=== PATIENT | female | born 1985 | race Caucasian/White ===

== ENCOUNTER 2019-08-27 00:38 | Emergency (ER) | payer SELFPAY ==
--- NOTE | 2019-08-27 01:33 | EDM.PDOC ---
ED HPI GENERAL MEDICAL PROBLEM - General Chief Complaint: Skin Complaint Stated Complaint: RASH Time Seen by Provider: 08/27/19 01:24 Source of Information: Reports: Patient History Limitations: Reports: No Limitations - History of Present Illness INITIAL COMMENTS - FREE TEXT/NARRATIVE: 34-year-old female presents to the ED due to severe pruritus a night. She reports she's been going on for about a month but is progressively getting worse. It is now spreading to the peritoneum and to the introitus of the vagina. Scribed it is a terrible burning itching discomfort. Is applied several [id number] preparations but most of them burned terribly and she has stopped using them. The history suggests that she is using Gain soap which is highly perfumed and does use it quite often to her perianal tissues and perineum and the believe that she might be soiled and thus causing the problems. Onset: Gradual Onset Date: 07/29/19 (Gradually worsening problem over the last month.) Duration: Week(s): (About 4 weeks.) Location: Reports: Other (Pruritus and 9 now spreading to the perineum and vulva ) Quality: Reports: Burning, Other Severity: Severe (Severe pruritus) Improves with: Reports: Other (Sitting in warm water baths does help some.) Worsens with: Reports: Other Context: Reports: Other (Spontaneous occurrence over the last month). 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 below) (She has tried several over-the- counter preparations which she has discontinued because of the severity of the burning may cause) Buttock Pain Score (Numeric/FACES): 10 - Related Data Allergies Allergy/AdvReac Type Severity Reaction Status Date / Time No Known Allergies Allergy Verified 08/27/19 00:45 Home Meds: Home Meds Betamethasone Valerate 15 gm TP DAILY #1 tube 08/27/19 [Rx] Past Medical History - Past Surgical History Female Surgical History: Reports: Hysterectomy Social & Family History - Tobacco Use Smoking Status *Q: Current Every Day Smoker Years of Tobacco use: 19 Packs/Tins Daily: 0.5 - Recreational Drug Use Recreational Drug Use: No - Living Situation & Occupation Living situation: Reports: Occupation: Unemployed ED ROS GENERAL - Review of Systems Review Of Systems: See Below Constitutional: Reports: No Symptoms HEENT: Reports: No Symptoms Respiratory: Reports: No Symptoms Cardiovascular: Reports: No Symptoms Endocrine: Reports: No Symptoms GI/Abdominal: Reports: No Symptoms : Reports: No Symptoms Musculoskeletal: Reports: No Symptoms Neurological: Reports: No Symptoms Psychiatric: Reports: No Symptoms Hematologic/Lymphatic: Reports: No Symptoms Immunologic: Reports: No Symptoms ED EXAM, SKIN/RASH Exam: See Below Exam Limited By: No Limitations General Appearance: Alert, WD/WN, Mild Distress, Other (Female) Exam: Other (On inspection she does have some mild vulvitis due to contact dermatitis with pinpoint erythema in the perineum and labia minora and at the introitus.) Rectal (Female) Exam: Other (Marked perianal inflammation due to contact dermatitis with perfume soap causing pruritus ani.) Back Exam: Normal Inspection Extremities: Normal Inspection Neurological: Alert, Oriented, CN II-XII Intact, Normal Cognition Psychiatric: Normal Affect, Normal Mood Skin: Warm, Dry, Other (Contact dermatitis as described above on examination of the perianal tissues and vulva.) Location, Skin: Perirectal Characteristics: Fine, Linear, Erythematous Associated features: Weeping Course - Vital Signs Last Recorded V/S: Last Vital Signs Temp 36.4 C 08/27/19 00:45 Pulse 73 08/27/19 00:45 Resp 16 08/27/19 00:45 BP 125/87 08/27/19 00:45 Pulse Ox 94 L 08/27/19 00:45 - Radiology Interpretation Free Text/Narrative:: 34-year-old female seen through the ED in regards to severe pruritus and I and a rash that seems to be spreading towards the perineum and vulva. This rash for about a month and is progressively getting worse. She suggest that she is using Gain soap and has been using it more than normal as she is concerned that she has soiled around the perianal tissues and this is what is causing the rash and the burning pleuritic pain. However on examination it is exactly the opposite. The soap is causing a contact dermatitis and the pruritus a night and irritation of the perineum and introitus of the vulva as well as the labia minora. Advised no further soap use unless absolutely necessary. If soap is required change to Dove or Ivory that is hypoallergenic. She'll be placed on Lamisil cream to soothe the area and betamethasone valerate cream 0.05% topically at bedtime to the area for the next week to help it heal. Departure - Departure Time of Disposition: 01:24 Disposition: Home, Self-Care 01 Condition: Fair Clinical Impression: Contact dermatitis and eczema due to detergents, Pruritus ani Contact dermatitis Qualifiers: Contact dermatitis type: irritant Contact dermatitis trigger: detergents Qualified Code(s): L24.0 - Irritant contact dermatitis due to detergents - Discharge Information *PRESCRIPTION DRUG MONITORING PROGRAM REVIEWED*: Not Applicable *COPY OF PRESCRIPTION DRUG MONITORING REPORT IN PATIENT ALETHA: Not Applicable Prescriptions: Betamethasone Valerate 15 gm TP DAILY #1 tube Instructions: Contact Dermatitis, [id number] Forms: ED Department Discharge Additional Instructions: Evaluation the emergency room tonight in regards to severe pruritus and 9 which means inflammation and severe itch burning of the tissues around the anus and as you described it perineum and vagina. Going on for about a month and is progressively getting worse. The history strongly suggests it is the perfume in the soap that you're using on this area causing the current problem. Exam confirms this. To contact dermatitis or sensitivity to the perfumes in your soap that you're using. This caused the skin to become very inflamed and breaking down which we call eczema. Or contact dermatitis. Treatment of course is to use no soap on this area at all unless necessary to get herself clean. You should use only hypoallergenic dog or Ivory to these tissues. At this time use Lamisil cream which is [id number] to the area at least once daily if not twice daily to soup the discomfort and prescription medication which is a steroid reduce the inflammation over the next week. The inflammation will usually settle pretty quickly over a period of a week to 10 days. Sepsis Event Note - Evaluation Sepsis Screening Result: No Definite Risk - Focused Exam Vital Signs: Vital Signs Temp Pulse Resp BP Pulse Ox 08/27/19 00:45 36.4 C 73 16 125/87 94 L Date Exam was Performed: 08/27/19 Time Exam was Performed: 02:25
== END 2019-08-27 01:41 | disposition home or self-care (01) ==
LOC: JD.ED 00:38
DX: L24.0 Irritant contact dermatitis due to detergents (principal); F17.210 Nicotine dependence, cigarettes, uncomplicated
CPT/HCPCS: 99282; 99283